=== PATIENT | female | born 1940 | race Caucasian/White ===

== ENCOUNTER 2017-05-16 20:58 | Emergency (ER) | payer MEDICARE ==
[~2017-05-16] VITALS: Ht 161.3 cm; Wt 81.0 kg
[~2017-05-16 20:58] MED LIST: ATOR10 PO; CELE200 PO; CYMB60CA PO; NARA2.5T PO; PATA0.6S; PROP80CA PO; TIZA4CAP PO; TOPI100 PO; ZETI10TA5 PO
[2017-05-16 21:06] VITALS: BP 134/69; PULSE 56; RESP 20; TEMP 97.9; O2SAT 96
--- NOTE | 2017-05-16 22:12 | PD ---
HPI Chief Complaint: Fall Time Seen by Provider: 22:04 Travel History International Travel<30 days: No Contact w/Intl Traveler<30days: No Traveled to known affect area: No History of Present Illness HPI 76-year-old female presents to the emergency department by private transportation for complaint of left wrist pain with swelling. Patient reports approximately 4 PM this afternoon she had a non-syncopal slip and fall landing on outstretched left upper extremity. Patient denies any forearm pain elbow pain upper arm pain or shoulder pain. Patient did not hit her head and did not have loss of consciousness. Patient denies neck pain back pain chest pain rib pain shortness of breath abdominal pain pelvic pain or other extremity pain. Patient is right-handed. Patient states due to persistent pain and swelling decided finally to come to the emergency room for evaluation. Last tetanus booster 2013. PFSH Past Medical History Narrative Medical Chronic back pain hypertension dyslipidemia CAD; cath w/ stent, hysterectomy; no tobacco use; nursing notes reviewed Social History Tobacco Use: No Allergies-Medications (Allergen,Severity, Reaction): Coded Allergies: No Known Allergies (Unverified Adverse Reaction, Unknown, 05/16/17) Reported Meds & Prescriptions Reported Meds & Active Scripts Active Percocet (Oxycodone-Acetaminophen) 5-325 mg Tab 1 Tab PO Q6H PRN Reported Olopatadine HCl 0.6 % [place].pump 0.[address] (Duloxetine HCl) 60 Mg Capdr 60 Mg PO DAILY Propranolol ER 24 HR (Propranolol HCl) 80 Mg Cap 80 Mg PO DAILY Tizanidine (Tizanidine HCl) 4 Mg Cap 4 Mg PO DAILY Atorvastatin (Atorvastatin Calcium) 10 Mg Tab 10 Mg PO HS Amoxicillin 500 Mg Cap 500 Mg PO BID Topamax (Topiramate) 100 Mg Tab 100 Mg PO BID Relpax (Eletriptan) 40 Mg Tab 40 Mg PO ONCE PRN Doxycycline Hyclate 50 Mg Cap 50 Mg PO BID Review of Systems Except as stated in HPI: all other systems reviewed are Neg Physical Exam Narrative GENERAL: Well-developed well-nourished pleasant female no acute distress and respiratory to SKIN: Warm and dry. HEAD: Normocephalic. EYES: No scleral icterus. No injection or drainage. NECK: Supple, trachea midline. No JVD or lymphadenopathy. CARDIOVASCULAR: Regular rate and rhythm without murmurs, gallops, or rubs. RESPIRATORY: Breath sounds equal bilaterally. No accessory muscle use. GASTROINTESTINAL: Abdomen soft, non-tender, nondistended. MUSCULOSKELETAL: No cyanosis, or edema. Attention left upper extremity no shoulder pain to palpation or deformity no upper arm pain or deformity to palpation or inspection elbow without soft tissue swelling deformity or tenderness on exam form intact distal forearm wrist soft tissue swelling with ecchymosis radial and ulnar pulses are 2+ to palpation capillary refill is intact less than 2 seconds per digit secondary to wrist pain patient has limitation on thumb apposition otherwise digits are neurovascular tendon intact with bruising to the distal pad of the fourth finger. Patient's rings are removed. BACK: Nontender without obvious deformity. No CVA tenderness. Data Data Last Documented VS Vital Signs Date Time Temp Pulse Resp B/P (MAP) Pulse Ox O2 Delivery O2 Flow Rate FiO2 05/16/17 22:12 18 96 Room Air 05/16/17 21:06 97.9 56 134/69 (90) Orders Orders Wrist, Complete ([id number]) (05/16/17 ) Ice/Cold Pack (05/16/17 22:04) Splint Or Brace Apply/Monitor (05/16/17 22:41) Oxycodone-Acetamin 5-325 Mg (Percocet (05/16/17 23:00) Ondansetron Odt (Zofran Odt) (05/16/17 23:00) Ed Discharge Order (05/16/17 22:53) MDM Medical Decision Making Medical Screen Exam Complete: Yes Emergency Medical Condition: Yes Medical Record Reviewed: Yes Interpretation(s) Last Impressions Wrist X-Ray 05/16/17 0000 Signed Impressions: Service Date/Time: Tuesday, May 16, 2017 22:10 - CONCLUSION: Nondisplaced fracture distal radius. Sybil Philip MD Vital Signs Date Time Temp Pulse Resp B/P (MAP) Pulse Ox O2 Delivery O2 Flow Rate FiO2 05/16/17 22:12 18 96 Room Air 05/16/17 21:06 97.9 56 20 134/69 (90) 96 Differential Diagnosis Sprain strain subluxation fracture Narrative Course Ice pack applied imaging study ordered Diagnosis Primary Impression: Wrist fracture, left Qualified Codes: S62.102A - Fracture of unspecified carpal bone, left wrist, initial encounter for closed fracture Referrals: Orthopaedic Surgeon call for appointment Patient Instructions: General Instructions Additional Instructions: Follow-up with orthopedic surgeon, call office in a.m. to schedule follow-up appointment Wear splint and sling Apply ice intermittently for first 12-24 hrs. Return to the emergency department for any concerns or change in condition May use as tolerated ibuprofen/Advil/Motrin every 6-8 hours for pain associated inflammation Take pain medication prescribed as needed beware because impaired judgment delayed reaction time and increased risk for fall or cause constipation Med/Other Pt SpecificInfo: Prescription(s) given Scripts Ondansetron Odt (Zofran Odt) 4 Mg Tab 4 MG SL Q6HR Y for Nausea/Vomiting, #10 TAB 0 Refills Prov: Damaris Jon MD 05/16/17 Oxycodone-Acetaminophen (Percocet) 5-325 mg Tab 1 TAB PO Q6H Y for PAIN, #7 TAB 0 Refills Prov: Damaris Jon MD 05/16/17 Disposition: 01 DISCHARGE HOME Condition: Stable Damaris Jon MD May 16, 2017 22:12
[2017-05-16] MEDS ORDERED: OLOP0.15 NASAL (22:27)
[2017-05-16] MEDS ORDERED: PROP80CA PO (22:27)
[2017-05-16] MEDS ORDERED: TOPI100 PO (22:27)
[2017-05-16] MEDS ORDERED: TIZA4CAP3 PO (22:27)
[2017-05-16] MEDS ORDERED: RELP40TA PO (22:27)
[2017-05-16] MEDS ORDERED: DOXY50 PO (22:27)
[2017-05-16] MEDS ORDERED: ATOR10TA15 PO (22:27)
[2017-05-16] MEDS ORDERED: AMOX500C PO (22:27)
[2017-05-16] MEDS ORDERED: DULO1CAP3 PO (22:27)
--- NOTE | 2017-05-16 22:28 | RADRPT ---
EXAM DATE/TIME: 05/16/2017 22:10 [facility] COMPARISON: No previous studies available for comparison. INDICATIONS : Left wrist pain post fall today MEDICAL HISTORY : None. SURGICAL HISTORY : None. ENCOUNTER: Initial ACUITY: 1 day PAIN SCORE: 8/10 LOCATION: Left anterior wrist FINDINGS: There is nondisplaced fracture of distal radius involving the epiphysis. Significant degenerative art hritis is seen the first carpometacarpal joint. CONCLUSION: Nondisplaced fracture distal radius. Sybil Philip MD on May 16, 2017 at 22:26 Board Certified Radiologist. This report was verified electronically.
[2017-05-16] MEDS ORDERED: PERC5TAB12 PO (22:44)
[2017-05-16] MEDS ORDERED: ZOFR4TAB3 SL (22:55)
[2017-05-16] MEDS ORDERED: oxyCODONE/ACETAMINOPHEN 5 MG/325 MG TAB PO ONE (23:00)
[2017-05-16] MEDS ORDERED: ONDANSETRON ODT 4 MG TAB PO ONE (23:00)
[2017-05-16 23:10] VITALS: BP 145/80
== END 2017-05-16 23:21 | disposition home or self-care (01) ==
LOC: PHED 20:58
DX: S62.102A Fracture of unspecified carpal bone, left wrist, initial encounter for closed fracture (principal); I10 Essential (primary) hypertension; I25.10 Atherosclerotic heart disease of native coronary artery without angina pectoris; G89.29 Other chronic pain; W01.0XXA Fall on same level from slipping, tripping and stumbling without subsequent striking against object, initial encounter
CPT/HCPCS: 29125; 73110